=== PATIENT | male | born 1965 | race Caucasian/White ===

== ENCOUNTER 2017-06-08 17:18 | Emergency (ER) | payer SELFPAY | END 2017-06-08 18:12 | disposition home or self-care (01) | LOC: SED 17:18 | DX: L23.7 Allergic contact dermatitis due to plants, except food (principal); R03.0 Elevated blood-pressure reading, without diagnosis of hypertension; J45.909 Unspecified asthma, uncomplicated; F17.200 Nicotine dependence, unspecified, uncomplicated | CPT/HCPCS: 96372; 99282; J1030 ==